=== PATIENT | female | born 1995 | race American Indian/Alaskan Native ===

== ENCOUNTER 2018-11-15 19:15 | Emergency (ER) | payer MEDICAID ==
--- NOTE | 2018-11-15 19:32 | Event Note ---
ED Screening Note ED Screening Note: pt states lower abd cramping that began yesterday no urinary sx states she is having bloody vaginal discharge LNMP: november 05 +sexually active, does not use protection no pmhx no allergies to meds This initial assessment/diagnostic orders/clinical plan/treatment(s) is/are subject to change based on patients health status, clinical progression and re- assessment by fellow clinical providers in the ED. Further treatment and workup at subsequent clinical providers discretion. Patient/guardian urged not to elope from the ED as their condition may be serious if not clinically assessed and managed. Initial orders include: UA, urine preg
[2018-11-15 20:17] LABS: Bilirubin,Urine NEG (Negative); Blood,Urine NEG (Negative); Color,Urine Yellow (Yellow); Mucus,Urine FEW /HPF; Protein,Urine <15 mg/dL mg/dL (Negative)
[2018-11-15 20:29] LABS: HCG Qualitative,Urine Negative (Negative)
[2018-11-15] MEDS ORDERED: XYLOCAINE 1% MPF 5 mL INFILTRATI ONE (23:13)
[2018-11-15] MEDS ORDERED: ZITHROMAX PO STA (23:13)
[2018-11-15] MEDS ORDERED: ROCEPHIN IM STA (23:13)
--- NOTE | 2018-11-15 23:20 | Emergency Department Report ---
ED General Adult HPI - General Chief complaint: Abdominal Pain Stated complaint: ABDOMINAL AND BACK PAIN Time Seen by Provider: 11/15/18 19:30 Source: patient Mode of arrival: Ambulatory Limitations: No Limitations - History of Present Illness Initial comments: 23-year-old -[place] female to emergency department complaining of a few day history of systems of pelvic discomfort associated with vaginal discharge and some mild spotting. Pain, radiates to the lower back. The vaginal discharge is yellowish and tendon in nature with an older, but she reports no pruritus, rashes, fevers, chills, sweats. -: Gradual Radiation: non-radiation Severity scale (0 -10): 5 Quality: dull Consistency: constant, intermittent Worsens with: none Associated Symptoms: denies: confusion, loss of appetite, malaise, nausea/vomiting, shortness of breath, syncope, weakness, other - Related Data Previous Rx's Medication Instructions Recorded Last Taken Type metroNIDAZOLE [Flagyl] 2,000 mg PO ONCE #4 tablet 11/15/18 Unknown Rx Allergies Allergy/AdvReac Type Severity Reaction Status Date / Time No Known Allergies Allergy Verified 11/15/18 19:26 ED Review of Systems ROS: Stated complaint: ABDOMINAL AND BACK PAIN Other details as noted in HPI Constitutional: denies: chills, fever Eyes: denies: eye pain, eye discharge, vision change ENT: denies: ear pain, throat pain Respiratory: denies: cough, shortness of breath, wheezing Cardiovascular: denies: chest pain, palpitations Endocrine: no symptoms reported Gastrointestinal: denies: abdominal pain, nausea, diarrhea Genitourinary: denies: urgency, dysuria, discharge Musculoskeletal: denies: back pain, joint swelling, arthralgia Skin: denies: rash, lesions Neurological: denies: headache, weakness, paresthesias Psychiatric: denies: anxiety, depression Hematological/Lymphatic: denies: easy bleeding, easy bruising ED Past Medical Hx - Past Medical History Previous Medical History?: No - Surgical History Past Surgical History?: No - Social History Smoking Status: Never Smoker Substance Use Type: None - Medications Home Medications: Home Medications Medication Instructions Recorded Confirmed Last Taken Type metroNIDAZOLE [Flagyl] 2,000 mg PO ONCE #4 tablet 11/15/18 Unknown Rx ED Physical Exam - General Limitations: No Limitations General appearance: alert, in no apparent distress - Head Head exam: Present: atraumatic, normocephalic - Eye Eye exam: Present: normal appearance, PERRL, EOMI Pupils: Present: normal accommodation - ENT ENT exam: Present: normal exam, mucous membranes moist, TM's normal bilaterally - Neck Neck exam: Present: normal inspection, tenderness, full ROM. Absent: meningismus, lymphadenopathy, thyromegaly - Respiratory Respiratory exam: Present: normal lung sounds bilaterally, chest wall tenderness. Absent: respiratory distress - Cardiovascular Cardiovascular Exam: Present: regular rate, normal rhythm. Absent: systolic murmur, diastolic murmur, rubs, gallop - GI/Abdominal GI/Abdominal exam: Present: soft, normal bowel sounds. Absent: distended, tenderness, organomegaly, bruit, hernia - External exam: Present: normal external exam Speculum exam: Present: vaginal discharge (yellowish and thin) Bi-manual exam: Present: normal bi-manual exam - Extremities Exam Extremities exam: Present: normal inspection, full ROM, normal capillary refill - Back Exam Back exam: Present: normal inspection. Absent: CVA tenderness (R), CVA tenderness (L) - Neurological Exam Neurological exam: Present: alert, oriented X3, CN II-XII intact, normal gait - Psychiatric Psychiatric exam: Present: normal affect, normal mood - Skin Skin exam: Present: warm, dry, intact, normal color. Absent: rash ED Course Vital Signs 11/15/18 11/15/18 19:28 19:30 Temperature 98.9 F 98.9 F Pulse Rate 104 H 104 H Respiratory 18 16 Rate Blood Pressure 118/76 Blood Pressure 118/76 [Left] O2 Sat by Pulse 100 99 Oximetry ED Medical Decision Making - Medical Decision Making 23-year-old [place] female with yellowish discharge. Did pelvic examination have a hospital does not have any GC probe for that reason, we'll prophyl actically treat her for GC and chlamydia. Critical care attestation.: If time is entered above; I have spent that time in minutes in the direct care of this critically ill patient, excluding procedure time. ED Disposition Clinical Impression: Vaginitis Disposition: DC-01 TO HOME OR SELFCARE Is pt being admited?: No Does the pt Need Aspirin: No Condition: Stable Instructions: Abdominal Pain (ED), Vaginitis (ED), Trichomoniasis (ED), Bacterial Vaginosis (ED) Referrals: [facility] [Provider Group] - 3-5 Days
[2018-11-16 00:24] VITALS: BP 116/72
== END 2018-11-16 01:15 | disposition home or self-care (01) ==
LOC: ED 19:15
DX: N76.0 Acute vaginitis (principal)
CPT/HCPCS: 81001; 81025; 96372; 99283; J0696

== ENCOUNTER 2018-12-28 21:45 | Emergency (ER) | payer MEDICAID ==
[2018-12-29 01:15] LABS: Hemoglobin 11.9 gm/dl (10.1-14.3); Mean Corpuscular HGB Conc 32 % (30-34); Mean Corpuscular Volume 88 fl (79-97); Red Cell Distribution Width 12.9 % (13.2-15.2)
[2018-12-29 01:16] LABS: Mean Platelet Volume 7.7 fl (6-12); Platelet Count 292 K/mm3 (140-440)
[2018-12-29 01:17] LABS: Basophils # (Auto) 0.1 K/mm3 (0.0-0.1); Eosinophils # (Auto) 0.1 K/mm3 (0.0-0.4); Eosinophils % (Auto) 1.4 % (0.0-4.3); Lymphocytes # (Auto) 2.2 K/mm3 (1.2-5.4); Monocytes # (Auto) 0.8 K/mm3 (0.0-0.8); Monocytes % (Auto) 9.5 % (0.0-7.3)
[2018-12-29 01:37] LABS: Alanine Aminotransferase 12 units/L (7-56); Albumin 4.5 g/dL (3.9-5); BUN/Creatinine Ratio 31; Blood Urea Nitrogen 22 mg/dL (7-17); Calcium 9.4 mg/dL (8.4-10.2)
[2018-12-29 01:38] LABS: Hemolysis Index 8
[2018-12-29 01:45] LABS: Bilirubin,Urine NEG (Negative); Blood,Urine NEG (Negative); Color,Urine Yellow (Yellow); Mucus,Urine FEW /HPF; Protein,Urine <15 mg/dL mg/dL (Negative); WBC,Urine < 1.0 /HPF (0.0-6.0)
[2018-12-29] MEDS ORDERED: ZOFRAN ODT PO ONE (05:39)
[2018-12-29] MEDS ORDERED: TYLENOL PO ONE (05:39)
[2018-12-29] MEDS ORDERED: ZITHROMAX PO ONE (06:07)
[2018-12-29] MEDS ORDERED: ROCEPHIN IM ONE (06:07)
[2018-12-29] MEDS ORDERED: XYLOCAINE 1% MPF 5 mL INFILTRATI ONE (06:07)
--- NOTE | 2018-12-29 06:32 | Emergency Department Report ---
ED Abdominal Pain HPI - General Chief Complaint: Abdominal Pain Stated Complaint: ABDOMINAL PAIN/BLOOD IN DISCHARGE Time Seen by Provider: 12/29/18 05:45 Source: patient Mode of arrival: Ambulatory Limitations: No Limitations - History of Present Illness Initial Comments: Patient is A0 23-year-old -[place] female with no past medical history presents to the ED with Coumadin with acute onset pain and vaginal discharge for the last 3 days. Patient denies nausea, vomiting, diarrhea, dysuria, urinary frequency and urgency, dizziness, fever, chills, no back pain, chest pain, shortness of breath, dyspareunia, headache or change in vision or vaginal bleeding. MD Complaint: abdominal pain, other (vaginal discharge) -: Sudden, days(s) (3) Location: suprapubic Radiation: none Migration to: suprapubic Severity: severe Severity scale (0 -10): 7 Quality: cramping, aching Consistency: constant Improves With: nothing Worsens With: nothing Associated Symptoms: denies other symptoms. denies: nausea, vomiting, fever, chills, constipation, dysuria, hematemesis, hematochezia, melena, hematuria, anorexia Treatments Prior to Arrival: NSAIDs - Related Data LMP Date: 12/24/18 Previous Rx's Medication Instructions Recorded Last Taken Type metroNIDAZOLE [Flagyl] 2,000 mg PO ONCE #4 tablet 11/15/18 Unknown Rx Acetaminophen/Codeine [Tylenol 1 tab PO Q6H PRN #12 tab 12/29/18 Unknown Rx /Codeine # 3 tab] DOXYCYCLINE Hyclate [Vibramycin 100 mg PO Q12HR #20 capsule 12/29/18 Unknown Rx CAP] Fluconazole [Diflucan TAB] 150 mg PO ONCE #1 tablet 12/29/18 Unknown Rx Ketorolac [Toradol] 10 mg PO Q8H PRN #20 tablet 12/29/18 Unknown Rx metroNIDAZOLE [Flagyl] 500 mg PO Q12HR #14 tab 12/29/18 Unknown Rx Allergies Allergy/AdvReac Type Severity Reaction Status Date / Time No Known Allergies Allergy Verified 11/15/18 19:26 ED Review of Systems ROS: Stated complaint: ABDOMINAL PAIN/BLOOD IN DISCHARGE Other details as noted in HPI Constitutional: denies: chills, fever Eyes: denies: eye pain, eye discharge, vision change ENT: denies: ear pain, throat pain Respiratory: denies: cough, shortness of breath, wheezing Cardiovascular: denies: chest pain, palpitations Endocrine: no symptoms reported Gastrointestinal: abdominal pain (suprapubic). denies: nausea, vomiting, diarrhea Genitourinary: discharge. denies: urgency, dysuria Musculoskeletal: denies: back pain, joint swelling, arthralgia Skin: denies: rash, lesions Neurological: denies: headache, weakness, paresthesias Psychiatric: denies: anxiety, depression Hematological/Lymphatic: denies: easy bleeding, easy bruising ED Past Medical Hx - Past Medical History Previous Medical History?: No - Surgical History Past Surgical History?: No - Social History Smoking Status: Never Smoker Substance Use Type: Alcohol - Medications Home Medications: Home Medications Medication Instructions Recorded Confirmed Last Taken Type metroNIDAZOLE [Flagyl] 2,000 mg PO ONCE #4 tablet 11/15/18 Unknown Rx Acetaminophen/Codeine [Tylenol 1 tab PO Q6H PRN #12 tab 12/29/18 Unknown Rx /Codeine # 3 tab] DOXYCYCLINE Hyclate [Vibramycin 100 mg PO Q12HR #20 capsule 12/29/18 Unknown Rx CAP] Fluconazole [Diflucan TAB] 150 mg PO ONCE #1 tablet 12/29/18 Unknown Rx Ketorolac [Toradol] 10 mg PO Q8H PRN #20 tablet 12/29/18 Unknown Rx metroNIDAZOLE [Flagyl] 500 mg PO Q12HR #14 tab 12/29/18 Unknown Rx ED Physical Exam - General Limitations: No Limitations General appearance: alert, in no apparent distress - Head Head exam: Present: atraumatic, normocephalic, normal inspection - Eye Eye exam: Present: normal appearance, PERRL, EOMI Pupils: Present: normal accommodation - ENT ENT exam: Present: normal exam, normal orophraynx, mucous membranes moist, TM's normal bilaterally, normal external ear exam - Neck Neck exam: Present: normal inspection, full ROM. Absent: tenderness, lymphadenopathy - Respiratory Respiratory exam: Present: normal lung sounds bilaterally. Absent: respiratory distress, wheezes, rhonchi, chest wall tenderness, accessory muscle use, decreased breath sounds - Cardiovascular Cardiovascular Exam: Present: regular rate, normal rhythm, normal heart sounds. Absent: systolic murmur, diastolic murmur, rubs, gallop - GI/Abdominal GI/Abdominal exam: Present: soft, tenderness (suprapubic), normal bowel sounds. 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 Absent: adnexal mass - Extremities Exam Extremities exam: Present: normal inspection, full ROM, normal capillary refill - Back Exam Back exam: Present: normal inspection, full ROM. Absent: tenderness, CVA tende rness (R), CVA tenderness (L), muscle spasm, paraspinal tenderness, vertebral tenderness - Neurological Exam Neurological exam: Present: alert, oriented X3, CN II-XII intact, normal gait, reflexes normal - Psychiatric Psychiatric exam: Present: normal affect, normal mood - Skin Skin exam: Present: warm, dry, intact, normal color. Absent: rash ED Course Vital Signs 12/28/18 23:14 Temperature 98.4 F Pulse Rate 95 H Respiratory 18 Rate Blood Pressure 116/64 O2 Sat by Pulse 98 Oximetry - Reevaluation(s) Reevaluation #1: 12/29/18 06:32 This is a 23-year-old female who presented to the ED with suprapubic pain and vaginal discharge. Patient is alert and oriented 3 and appears to be in pain. Lab test results were reviewed and are unremarkable. Pelvic exam is consistent with acute pelvic inflammatory disease with cervical motion tenderness and bilateral adnexal tenderness. Patient was treated in the ED with antibiotics and discharged home on pain medications and antibiotics and advised follow-up with our [employer] physician in 7-10 days for reevaluation. Patient was advised to return to the ED immediately if symptoms get worse. ED Medical Decision Making - Lab Data Result diagrams: 12/28/18 23:37 12/28/18 23:37 - Medical Decision Making This is a 23-year-old female who presented to the ED with suprapubic pain and vaginal discharge. Patient is alert and oriented 3 and appears to be in pain. Lab test results were reviewed and are unremarkable. Pelvic exam is consistent with acute pelvic inflammatory disease with cervical motion tenderness and bilateral adnexal tenderness. Patient was treated in the ED with antibiotics and discharged home on pain medications and antibiotics and advised follow-up with our [employer] physician in 7-10 days for reevaluation. Patient was advised to return to the ED immediately if symptoms get worse. - Differential Diagnosis abdominal pain, acute PID, Bacterial vaginosis, STD, Alix vaginitis Critical care attestation.: If time is entered above; I have spent that time in minutes in the direct care of this critically ill patient, excluding procedure time. ED Disposition Clinical Impression: Acute pelvic inflammatory disease (PID), Bacterial vaginosis, Alix vaginitis Disposition: TO HOME OR SELFCARE Is pt being admited?: No Does the pt Need Aspirin: No Condition: Stable Instructions: Bacterial Vaginosis (ED), Pelvic Inflammatory Disease (ED), Vaginitis (ED) Additional Instructions: Take medications with food, drink plenty of fluids and follow up with your primary care physician in 7-10 days for reevaluation. Return to the ED immediately if symptoms get worse. Prescriptions: Fluconazole [Diflucan TAB] 150 mg PO ONCE #1 tablet metroNIDAZOLE [Flagyl] 500 mg PO Q12HR #14 tab Ketorolac [Toradol] 10 mg PO Q8H PRN #20 tablet PRN Reason: Pain Acetaminophen/Codeine [Tylenol /Codeine # 3 tab] 1 tab PO Q6H PRN #12 tab PRN Reason: Pain , Severe (7-10) DOXYCYCLINE Hyclate [Vibramycin CAP] 100 mg PO Q12HR #20 capsule [facility] [Primary Care Provider] - 3-5 Days Forms: STI Treatment and Prevention Time of Disposition: 06:35 Print Language: SINHALA
[2018-12-29 07:09] VITALS: BP 103/50
== END 2018-12-29 07:09 | disposition home or self-care (01) ==
LOC: ED 21:45
DX: N73.0 Acute parametritis and pelvic cellulitis (principal); B37.3 Candidiasis of vulva and vagina; Z79.899 Other long term (current) drug therapy
CPT/HCPCS: 36415; 80053; 81001; 84703; 85025; 87210; 87591; 96372; 99284; J0696; Q0162